=== PATIENT | male | born 1995 | race Two or more races ===

== ENCOUNTER 2017-10-20 21:32 | Emergency (ER) | payer OTHER ==
--- NOTE | 2017-10-20 22:40 | EDM.PDOC ---
ED HPI GENERAL MEDICAL PROBLEM - General Chief Complaint: Cardiovascular Problem Stated Complaint: HEART PROBLEMS Time Seen by Provider: 10/20/17 22:24 Source of Information: Reports: Patient, Significant Other (Girlfriend) History Limitations: Reports: No Limitations - History of Present Illness INITIAL COMMENTS - FREE TEXT/NARRATIVE: The patient states that he has been experiencing the sensation of palpitations, a rapid heartbeat, on off for the past 2 days. He states that he has felt palpitations while waiting to be seen here in the ED. No symptoms of palpitations prior to 2 days ago. The patient mentions that he has been on a ketogenic diet for the past month. He has also been using a pre-workout supplement called BANG, although he discontinued this 4 days ago. BANG contains caffeine, as well as other substances, although the patient does not otherwise drink caffeinated beverages or energy drinks. No attempts at home treatments or remedies over the past 2 days. The patient does not have a PCP. Chest Pain Score (Numeric/FACES): 1 - Related Data Allergies Allergy/AdvReac Type Severity Reaction Status Date / Time No Known Allergies Allergy Verified 10/20/17 21:52 Home Meds: Home Meds . [No Known Home Meds] 10/20/17 [History] Past Medical History - Past Surgical History HEENT Surgical History: Reports: Adenoidectomy, Oral Surgery ([place] teeth extraction) Social & Family History - Tobacco Use Smoking Status *Q: Never Smoker Second Hand Smoke Exposure: No - Alcohol Use Alcohol Use History: Yes Alcohol Use Frequency: Socially - Recreational Drug Use Recreational Drug Use: Yes Drug Use in Last 12 Months: Yes Recreational Drug Type: Reports: Marijuana/Hashish (nightly) - Living Situation & Occupation Living situation: Reports: Single, with Significant Other (Girlfriend), Other ( Roommate) Occupation: Employed ([employer]) ED ROS GENERAL - Review of Systems Review Of Systems: ROS reveals no pertinent complaints other than HPI. ED EXAM, GENERAL - Physical Exam Exam: See Below Exam Limited By: No Limitations General Appearance: Alert, WD/WN, No Apparent Distress Eye Exam: Bilateral Eye: Normal Inspection Ears: Normal External Exam, Hearing Grossly Normal Nose: Normal Inspection, No Blood Throat/Mouth: Normal Inspection, Normal Lips, Normal Voice, No Airway Compromise Head: Atraumatic, Normocephalic Neck: Normal Inspection, Full Range of Motion Respiratory/Chest: No Respiratory Distress, Lungs Clear, Normal Breath Sounds, No Accessory Muscle Use Cardiovascular: Normal Peripheral Pulses, Regular Rate, Rhythm, No Edema, No Gallop, No JVD, No Murmur, No Rub Peripheral Pulses: 4+: Radial (L), Radial (R) GI/Abdominal: Normal Bowel Sounds, Soft, Non-Tender, No Organomegaly, No Distention, No Abnormal Bruit, No Mass (Male) Exam: Deferred Rectal (Males) Exam: Deferred Back Exam: Normal Inspection, Full Range of Motion, NT Extremities: Normal Inspection, Normal Range of Motion, No Pedal Edema, Normal Capillary Refill Neurological: Alert, Oriented, Normal Cognition, No Motor/Sensory Deficits Psychiatric: Normal Affect Skin Exam: Warm, Dry, Intact, Normal Color, No Rash EKG INTERPRETATION EKG Date: 10/20/17 Time: 21:54 Rhythm: NSR Rate (Beats/Min): 83 [place]: Normal P-Wave: Present QRS: Normal (J-point elevation in the anterior leads, but no ischemic changes) ST-T: Normal QT: Normal Comparison: NA - No Prior EKG Course - Vital Signs Last Recorded V/S: Last Vital Signs Temp 36.9 C 10/20/17 21:50 Pulse 75 10/20/17 21:50 Resp 18 10/20/17 21:50 BP 132/72 10/20/17 21:50 Pulse Ox 98 10/20/17 21:50 - Orders/Labs/Meds Orders: Active Orders 24 hr Category Date Time Status EKG Documentation Completion [RC] ASDIRECTED Care 10/20/17 22:00 Active EKG 12 Lead [EK] Stat Ther 10/20/17 22:00 Ordered Labs: Laboratory Tests 10/20/17 10/20/17 Range/Units 22:50 22:50 WBC 8.88 (4.23-9.07) K/mm3 RBC 4.55 L (4.63-6.08) M/mm3 Hgb 13.9 (13.7-17.5) gm/L Hct 41.1 (40.1-51.0) % MCV 90.3 (79.0-92.2) fl MCH 30.5 (25.7-32.2) pg MCHC 33.8 (32.2-35.5) g/dl RDW Std Deviation 38.5 (35.1-43.9) fL Plt Count 232 (163-337) K/mm3 MPV 11.2 (9.4-12.3) fl Neutrophils % (Manual) 61 H (40-60) % Band Neutrophils % 0 (0-10) % Lymphocytes % (Manual) 32 (20-40) % Atypical Lymphs % 0 % Monocytes % (Manual) 5 (2-10) % Eosinophils % (Manual) 2 (0.8-7.0) % Basophils % (Manual) 0 L (0.2-1.2) Platelet Estimate Adequate RBC Morph Comment Normal Sodium 136 (136-145) mEq/L Potassium 4.0 (3.5-5.1) mEq/L Chloride 104 (98-107) mEq/L Carbon Dioxide 26 (21-32) mEq/L Anion Gap 10.0 (5-15) BUN 18 (7-18) mg/dL Creatinine 1.4 H (0.7-1.3) mg/dL Est Cr Clr Drug Dosing TNP Estimated GFR (MDRD) > 60 (>60) mL/min BUN/Creatinine Ratio 12.9 L (14-18) Glucose 86 (74-106) mg/dL Calcium 9.0 (8.5-10.1) mg/dL Magnesium 2.0 (1.8-2.4) mg/dl Total Bilirubin 0.6 (0.2-1.0) mg/dL AST 25 (15-37) U/L ALT 28 (16-63) U/L Alkaline Phosphatase 85 (46-116) U/L Total Protein 7.0 (6.4-8.2) g/dl Albumin 4.0 (3.4-5.0) g/dl Globulin 3.0 gm/dL Albumin/Globulin Ratio 1.3 (1-2) - Re-Assessments/Exams Free Text/Narrative Re-Assessment/Exam: 10/20/17 22:39 The patient stated that he felt some palpitations while here in the ED, although not at this moment. I reviewed the equipment monitor phototypesetting record, and at one point, the patient's heart rate did go as high as 99 bpm. We also see a couple of PVCs, although the patient is not complaining of the sensation of skipped beats. I have ordered a CBC, CMP, and magnesium level. 10/20/17 23:44 Test results discussed with the patient and his girlfriend. Sophia's workup, including blood work and an ECG, are entirely normal. As above, no abnormal rhythms were found on the equipment monitor phototypesetting. I suspect that the patient may be experiencing occasional sinus tachycardia, but I do not see any evidence of any pathologic tachycardia, such as SVT. I am therefore not going to assign a Holter monitor at this time, however, I will refer the patient to Dr. uKo, should his symptoms persist. In the meantime, I'm recommending that the patient avoid his pre-workout supplement BANG, as it contains caffeine. Departure - Departure Time of Disposition: 23:48 Disposition: Home, Self-Care 01 Condition: Good Clinical Impression: Rapid palpitations Instructions: Palpitations, [id number] Referrals: PCP,Sophia [Primary Care Provider] - Sherri Kuo [Physician] - Forms: ED Department Discharge Additional Instructions: You were seen in the emergency room for the sensation of a rapid heartbeat on and off for the past 2 days. Workup in the ER included an blood work and an ECG. Your heart was also telemetry monitored during your ER visit. Your entire workup was unremarkable. The fastest that your heart rate went during your ER visit was 99 bpm, with no abnormal rhythms found. Your blood work was normal. You're not anemic. Your electrolytes are normal. The cause of your symptoms is unclear, but is MOST LIKELY due to sinus tachycardia. We recommend that you discontinue the use of the supplement BANG. If your symptoms persist, please follow-up with Dr. Kuo in the clinic. If any other problems, please do not hesitate to return to the ER. - My Orders Last 24 Hours: My Active Orders 10/20/17 22:00 EKG Documentation Completion [RC] ASDIRECTED EKG 12 Lead [EK] Stat - Assessment/Plan Last 24 Hours: My Active Orders 10/20/17 22:00 EKG Documentation Completion [RC] ASDIRECTED EKG 12 Lead [EK] Stat
== END 2017-10-20 23:55 | disposition home or self-care (01) ==
LOC: JD.ED 21:32
DX: R00.2 Palpitations (principal)
CPT/HCPCS: 36415; 80053; 83735; 85025; 93005; 93010; 99284-25; 99285-25